=== PATIENT | female | born 1955 | race Caucasian/White ===

== ENCOUNTER 2018-12-06 18:40 | Inpatient (IN) | payer MEDICAID ==
[~2018-12-06] VITALS: Ht 152.4 cm; Wt 69.6 kg
[2018-12-06] MEDS ORDERED: SOD CHLORIDE 0.9% 500 ML IV STA (20:47)
[2018-12-06] MEDS ORDERED: PIPER-TAZO 3.375 GM IV (PMX) 100 ML IVPB ONE (21:00)
--- NOTE | 2018-12-06 22:26 | HP ---
Date/Time of Note Date/Time of Note DATE: 12/06/18 TIME: 22:26 Assessment/Plan VTE Prophylaxis SCD applied (from Nsg): Yes (left lower extremity) Pharmacological prophylaxis: NA/contraindicated Pharm contraindication: low risk/ambulating Lines/Catheters IV Catheter Type (from Nrsg): Peripheral IV Assessment/Plan Hospital Course This is a 63-year-old female being admitted to the [facility] floor for: #1 nonhealing right ankle chronic wound: Healing likely affected secondary to right lower extremity stenosis seen on arterial ultrasound. Start Vanco and Zosyn. Wound culture. Wound care consult. Ultrasound Doppler does not show any signs of DVT. Order X-rays of the ankle 3 view.Will consult podiatry for further evaluation as well as treatment strategy and need for further imaging studies such as CT or MRI. Will check ESR and CRP #2 hyperlipidemia: We will check lipid panel, will need to confirm dosing of patient's home simvastatin and then resume #3 newly diagnosed peripheral artery disease: Arterial ultrasound Doppler showed right lower extremity stenosis at the level of the dorsalis pedis. Will hold off on any initiation of aspirin at the current time given patient's wound and possible need for surgical intervention. Statin once patient's home doses confirmed though may need higher intensity statin. Consult vascular surgery Dr. Carroll #4 obesity: We will check hemoglobin A1c, lipid panel, TSH #5 DVT GI prophylaxis: SCDs to the left lower extremity, no GI prophylaxis indicated Further treatment strategy will be implemented as per the clinical course Result Diagram: 12/06/18205712/06/182057 Results 24hrs Laboratory Tests Test 12/06/18 20:58 White Blood Count 8.4 Red Blood Count 4.33 Hemoglobin 12.5 Hematocrit 38.4 Mean Corpuscular Volume 88.7 Mean Corpuscular Hemoglobin 28.9 L Mean Corpuscular Hemoglobin Concent 32.6 Red Cell Distribution Width 13.4 Platelet Count 230 Mean Platelet Volume 10.9 H Immature Granulocytes % 0.400 Neutrophils % 48.4 Lymphocytes % 31.8 Monocytes % 6.8 Eosinophils % 11.8 H Basophils % 0.8 Nucleated Red Blood Cells % 0.0 Immature Granulocytes # 0.030 Neutrophils # 4.1 Lymphocytes # 2.7 Monocytes # 0.6 Eosinophils # 1.0 H Basophils # 0.1 Nucleated Red Blood Cells # 0.0 Prothrombin Time 11.6 L Prothrombin Time Ratio 0.9 INR International Normalized Ratio 0.84 Activated Partial Thromboplast Time 33.2 Sodium Level 143 Potassium Level 4.4 Chloride Level 103 Carbon Dioxide Level 29 Anion Gap 11 Blood Urea Nitrogen 21 H Creatinine 0.75 Est Glomerular Filtrat Rate mL/min > 60 Glucose Level 106 Calcium Level 10.0 HPI/ROS Admit Date/Time Admit Date/Time Dec 06, 2018 at 21:33 Hx of Present Illness cc: right ankle wound x 2 months, worse since wednesday This is a 63-year-old woman complaining of worsening ulcer to the right medial ankle, she states the skin started breaking down about 2 months ago and has been getting worse. She was seen and evaluated at 2 separate emergency departments over the last 2 days and discharged but she has had no recent imaging studies and no antibiotic use. She states on wednesday she had some bleeding from a blister that formed there but has since popped. She has pain with ambulation. She denies fevers or chills, no chest pain or shortness of breath, no paresis or paresthesias. 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 allergies: nkda meds: see nov Const: As per HPI Eyes : No pain discharge or redness or change in visual acuity ENT: No pain, sore throat, congestion, congestion, dysphagia or discharge Respiratory: No shortness of breath, cough, sputum, wheezing, or pleuritic pain Cardiovascular: No chest pain, palpitation, PND, or edema GI : no change in appetite, abdominal pain, nausea, vomiting, diarrhea, constipation, or change in the color his stool Genitourinary: No dysuria, hematuria, flank pain , discharge or CVA tenderness Musculoskeletal: As per HPI Skin: As per HPI Neuro: No headache, dizziness, syncope, seizure, focal weakness Endocrine: No polyuria, polydipsia, temperature intolerance Psych: No hallucination, depression, anxiety or suicidal ideation PMH/Family/Social Past Medical History HLD Medications Current Medications IV Flush (NS 3 ml) 3 ml PER PROTOCOL IV ; Start 12/06/18 at 22:30; Status UNV Ondansetron HCl (Zofran Inj) 4 mg Q6H PRN IV NAUSEA/VOMITING; Start 12/06/18 at 22:30; Status UNV Acetaminophen (Tylenol Tab) 650 mg Q6H PRN PO .PAIN 1-3 OR TEMP; Start 12/06/18 at 22:30; Status UNV Acetaminophen/ Hydrocodone Bitart ([place] (5/325)) 1 tab Q6H PRN PO .MOD PAIN 4- 6; Start 12/06/18 at 22:30; Status UNV Morphine Sulfate (morphine) 2 mg Q4H PRN IV .SEVERE PAIN 7-10; Start 12/06/18 at 22:30; Status UNV Docusate Sodium (Colace) 100 mg Q12H PRN PO .CONSTIPATION; Start 12/06/18 at 22:30; Status UNV Bisacodyl (Dulcolax) 5 mg DAILY PRN PO .CONSTIPATION; Start 12/06/18 at 22:30; Status UNV Coded Allergies: No Known Allergy (Unverified , 12/06/18) Past Surgical History x 1, varicose vein surgery Family History Significant Family History: no pertinent family hx Social History Alcohol Use: none Smoking Status: Never smoker Drug Use: none Exam/Review of Systems Vital Signs Vitals Vital Signs Date Temp Pulse Resp B/P (MAP) Pulse Ox O2 O2 Flow FiO2 Time Delivery Rate 12/06/18 98.3 99 19 154/79 98 Room Air 22:01 (104) Exam Exam General: Patient is currently lying in bed in no acute distress HEENT: Atraumatic, normocephalic. The pupils are equal, round and reactive. Extraocular motor are intact Neck: Supple with full range of motion. No rigidity or meningismus Chest: Nontender Lungs: Clear to auscultation bilaterally no crackles rales or wheezing Heart: Normal S1-S2, Regular rhythm and rate. No murmur, S3, or S4 Abdomen: Soft , nontender, nondistended , bowel sounds are present. No guarding no rebound tenderness , No masses or organomegaly. No costovertebral temporal angle mass Extremities: Right lower extremity varicose veins, right medial ankle wound please see skin, Skin: Right medial ankle skin wound approximately 3 x 3 cm, discoloration with scant dried discharge Neurologic: Normal mental status, speech normal, cranial nerves II through XII are intact, motor and sensory are intact, Additional Comments PROCEDURE: US Lower extremity arterial bilateral. CLINICAL INDICATION: Pain TECHNIQUE: Multiple sonographic images of the bilateral lower extremity arteries were obtained utilizing grayscale, color-flow and doppler imaging. The images were reviewed on a PACS workstation. COMPARISON: None. FINDINGS: Scattered calcified atherosclerotic plaque is seen. Velocities and waveforms were obtained as described below. RIGHT LEG: Right common femoral artery: 122.1 cm/s; triphasic waveforms Right proximal superficial femoral artery: 93.3 cm/s; triphasic waveforms Right mid superficial femoral artery: 77.8 cm/s; triphasic waveforms Right distal superficial femoral artery: 53.5 cm/s; triphasic waveforms Right popliteal artery: 57.9 cm/s; triphasic waveforms Right posterior tibial artery: 64.6 cm/s; biphasic waveforms Right dorsalis pedis artery: 172.5 cm/s; biphasic waveforms Right CRISTIAN: Could not be calculi due to calcified posterior tibial and dorsalis pedis arteries. LEFT LEG: Left common femoral artery: 97.1 cm/s; triphasic waveforms Left proximal superficial femoral artery: 95.2 cm/s; triphasic waveforms Left mid superficial femoral artery: 91.2 cm/s; triphasic waveforms Left distal superficial femoral artery: 51.7 cm/s; triphasic waveforms Left popliteal artery: 39.5 cm/s; triphasic waveforms Left posterior tibial artery: 61.6 cm/s; triphasic waveforms Left dorsalis pedis artery: 15 cm/s; biphasic waveforms Left CRISTIAN: 1, 0.84 IMPRESSION: Elevation of peak systolic velocity in the right dorsalis pedis artery suggestive of hemodynamically significant stenosis. Please see above. RPTAT: HJES .Damien Laughlin MD, MD Date Time Electronically viewed and signed by .Damien Laughlin MD, MD on 12/06/2018 22:11 .S/ CC: JEAN CARLOS LAURENT MD [id number] PROCEDURE: US Lower extremity Venous bilateral. CLINICAL INDICATION: Pain TECHNIQUE: Multiple sonographic images of the bilateral lower extremity deep venous system was obtained utilizing grayscale, color-flow, compressive sonography and doppler imaging with augmentation. The images were reviewed on a PACS workstation. COMPARISON: None. FINDINGS: There is normal compressibility and flow within bilateral common femoral, femoral, popliteal, posterior tibial and peroneal veins. IMPRESSION: No sonographic evidence for bilateral lower extremity deep venous thrombosis. RPTAT: HJES .Damien Laughlin MD, MD Date Time Electronically viewed and signed by .Damien Laughlin MD, MD on 12/06/2018 22:12 .S/ CC: JEAN CARLOS LAURENT MD [id number] MISAEL MOTA Dec 06, 2018 22:26
[2018-12-06] MEDS ORDERED: morphine 2 MG INJ IV PRN (22:30)
[2018-12-06] MEDS ORDERED: NACL 0.9% 3 ML SYG IV SCH (22:30)
[2018-12-06] MEDS ORDERED: BISACODYL (EC) 5 MG TAB PO PRN (22:30)
[2018-12-06] MEDS ORDERED: ONDANSETRON 4 MG INJ IV PRN (22:30)
[2018-12-06] MEDS ORDERED: DOCUSATE SODIUM 100 MG CAP PO PRN (22:30)
[2018-12-06] MEDS ORDERED: HYDROCODONE/APAP (5/325) TAB PO PRN (22:30)
--- NOTE | 2018-12-06 22:36 | ERD ---
ER Documentation Chief Complaint Chief Complaint BLEEDING ULCER IN RIGHT ANKLE X'S 3 DAYS HPI This is a 63-year-old woman complaining of worsening ulcer to the right medial ankle, she states the skin started breaking down about 2 months ago and has been getting worse. She was seen and evaluated at 2 separate emergency departments over the last 2 days and discharged but she has had no recent imaging studies and no antibiotic use. She has pain with ambulation. She denies fevers or chills, no chest pain or shortness of breath, no paresis or paresthesias ROS All systems reviewed and are negative except as per history of present illness. Allergies Allergies: Coded Allergies: No Known Allergy (Unverified , 12/06/18) PMhx/Soc None Medical and Surgical Hx: pt denies Medical Hx History of Surgery: Yes () Hx Cardiac Disorders: No Hx Miscellaneous Medical Probl: No Hx Alcohol Use: No Hx Substance Use: No Hx Tobacco Use: No Smoking Status: Unknown if ever smoked FmHx Family History: No diabetes Physical Exam Vitals Vital Signs Date Temp Pulse Resp B/P (MAP) Pulse Ox O2 O2 Flow FiO2 Time Delivery Rate 12/06/18 98.3 65 18 146/75 98 19:04 (98) Physical Exam Const: No acute distress, afebrile Resp: Clear to auscultation bilaterally Cardio: Regular rate and rhythm, no murmurs Abd: Soft, non tender, non distended. Skin: Large irregular bordered deep skin ulceration to the right medial ankle with purulent discharge and mild tenderness to touch Back: No midline or flank tenderness Ext: No cyanosis, or edema. Calves bilaterally symmetrical Neur: Awake and alert x3, no focal deficits or facial asymmetry, pupils equal round reactive to light Psych: Normal Mood and Affect Result Diagram: 12/06/18205712/06/182057 Results 24 hrs Laboratory Tests Test 12/06/18 20:58 White Blood Count 8.4 10^3/ul Red Blood Count 4.33 10^6/ul Hemoglobin 12.5 g/dl Hematocrit 38.4 % Mean Corpuscular Volume 88.7 fl Mean Corpuscular Hemoglobin 28.9 pg Mean Corpuscular Hemoglobin Concent 32.6 g/dl Red Cell Distribution Width 13.4 % Platelet Count 230 10^3/UL Mean Platelet Volume 10.9 fl Immature Granulocytes % 0.400 % Neutrophils % 48.4 % Lymphocytes % 31.8 % Monocytes % 6.8 % Eosinophils % 11.8 % Basophils % 0.8 % Nucleated Red Blood Cells % 0.0 /100WBC Immature Granulocytes # 0.030 10^3/ul Neutrophils # 4.1 10^3/ul Lymphocytes # 2.7 10^3/ul Monocytes # 0.6 10^3/ul Eosinophils # 1.0 10^3/ul Basophils # 0.1 10^3/ul Nucleated Red Blood Cells # 0.0 10^3/ul Prothrombin Time 11.6 Sec Prothrombin Time Ratio 0.9 INR International Normalized Ratio 0.84 Activated Partial Thromboplast Time 33.2 Sec Sodium Level 143 mmol/L Potassium Level 4.4 mmol/L Chloride Level 103 mmol/L Carbon Dioxide Level 29 mmol/L Anion Gap 11 Blood Urea Nitrogen 21 mg/dl Creatinine 0.75 mg/dl Est Glomerular Filtrat Rate mL/min > 60 mL/min Glucose Level 106 mg/dl Calcium Level 10.0 mg/dl Current Medications Medications Dose Sig/Nader Start Time Status Last (Trade) Ordered Route PRN Stop Time Admin Dose Reason Admin Sodium 500 ml @ Q1H STAT 12/06/18 DC 12/06/18 Chloride 500 mls/hr IV 20:47 12/06/18 21:15 21:46 Piperacillin 100 ml @ ONCE ONCE 12/06/18 DC 12/06/18 Sod/ 200 mls/hr IVPB 21:00 12/06/18 21:14 Tazobactam 21:29 Sod Procedures/MDM IV line was established patient was placed on hospital monitor rhythm strip revealed a sinus rhythm at about 80 bpm with upright P and T waves. Patient was afebrile I administered 500 cc normal saline IV and Zosyn 3.375 g IV Doppler ultrasound of the bilateral lower extremity veins was performed, no deep vein thrombosis noted. Arterial Doppler ultrasound of the bilateral lower extremities was performed, and there is significant stenosis of the right dorsalis pedis artery. CBC was normal, electrolytes revealed dehydration with a BUN/creatinine of 21/0.8, coagulation profile was normal. Patient will be admitted to [facility] for continued antibiotic therapy and possible vascular surgery consultation Departure Diagnosis: Primary Impression: Peripheral arterial occlusive disease Additional Impression: Infected ulcer of skin Non-pressure ulcer stage: unspecified non-pressure ulcer stage Qualified Codes: L98.499 - Non-pressure chronic ulcer of skin of other sites with unspecified severity; L08.9 - Local infection of the skin and subcutaneous tissue, unspecified Condition: JEAN CARLOS Purvis MD Dec 06, 2018 22:29
[2018-12-06] MEDS ORDERED: SIMV40TA2 PO (22:52)
[2018-12-06] MEDS ORDERED: IBUP-1542 PO (22:52)
[2018-12-06] MEDS ORDERED: OMEG-135 PO (22:52)
[2018-12-07 02:00] VITALS: BP 114/61; PULSE 71; RESP 19
[2018-12-07] MEDS ORDERED: VANCOMYCIN IV PER PHARMACY XX SCH ×2 (02:00)
[2018-12-07] MEDS ORDERED: VANCOMYCIN HCL 1.5 GM in SOD CHLORIDE 0.9% 250 ML IVPB SCH (04:00)
[2018-12-07 07:36] VITALS: BP 123/66; PULSE 74; RESP 18
--- NOTE | 2018-12-07 12:50 | PN ---
Date/Time of Note Date/Time of Note DATE: 12/07/18 TIME: 12:50 Assessment/Plan VTE Prophylaxis Risk score (from Ns)>0 risk: 3 SCD applied (from Nsg): Yes Pharmacological prophylaxis: LMWH Lines/Catheters IV Catheter Type (from Nrs): Saline Lock Assessment/Plan Hospital Course SUBJECTIVE: Lying in bed, no acute distress. OBJECTIVE: Vital signs-see below PHYSICAL EXAM: Constitutional: Well-developed, adequately built, lying in bed comfortably. Psych: nl mood/affect, no complaints Head: atraumatic, normocephalic Eyes: nl conjunctiva, nl sclera ENMT: mucosa pink and moist, nl external ears & nose Neck: non-tender, supple Respiratory: clear to auscultation, normal air movement Cardiovascular: nl pulses, regular rate and rhythm Gastrointestinal: non-tender, soft, bowel sounds active in all 4 quadrants. Musculoskeletal/extremities: Right ankle wound. Dressing intact. nl extremities to inspection, motor strength equal bilaterally, no focal deficit. Normal pulses,no cyanosis, no edema. Neurological: Alert oriented 3,nl speech, nl strength Skin: nl turgor ASSESSMENT/PLAN:63-year-old female with hyperlipidemia, peripheral artery disease, admitted with nonhealing right ankle chronic wound. 1.Non healing right ankle arterial wound -Arterial studies positive for Significant stenosis on right DP artery. -Continue empiric antibiotics -wound care. -Podiatry and vascular consultation has been called. 2. Peripheral arterial disease. -Arterial study noted, positive for significant stenosis of right DP artery. --Continue to optimize neurovascular status with antihypertensives to keep blood pressure ~140/90, diet, nutrition, exercise, blood glucose control, and antiplatelets/anticoagulation. -Follow-up vascular recommendations. 3. Hyperlipidemia -Resume statin and fish oil supplementation. 4. Obesity with BMI 30.0. -Weight reduction advised. 5. Prediabetes with A1c 6.1. -Diet changes and exercise advised. 6. Anemia, likely chronic. -Stable H&H. Continue to monitor. 7. Elevated TSH, rule out hypothyroidism. -Obtain free T4 level and treat accordingly. DVT GI prophylaxis: Lovenox. PUD prophylaxis: Not indicated CODE STATUS: Full code Diet: LOW CHOL/Carbohydrate controlled. Disposition: Continue current management. Follow-up podiatry and vascular recommendations. Result Diagram: 12/07/18 0426 12/07/18 0426 Results 24hrs Laboratory Tests Test 12/06/18 20:58 12/07/18 04:25 12/07/18 04:26 White Blood Count 8.4 7.7 Red Blood Count 4.33 3.84 L Hemoglobin 12.5 11.1 L Hematocrit 38.4 33.9 L Mean Corpuscular Volume 88.7 88.3 Mean Corpuscular Hemoglobin 28.9 L 28.9 L Mean Corpuscular Hemoglobin Concent 32.6 32.7 Red Cell Distribution Width 13.4 13.2 Platelet Count 230 207 Mean Platelet Volume 10.9 H 11.1 H Immature Granulocytes % 0.400 0.300 Neutrophils % 48.4 50.9 Lymphocytes % 31.8 27.7 Monocytes % 6.8 7.4 Eosinophils % 11.8 H 13.0 H Basophils % 0.8 0.7 Nucleated Red Blood Cells % 0.0 0.0 Immature Granulocytes # 0.030 0.020 Neutrophils # 4.1 3.9 Lymphocytes # 2.7 2.1 Monocytes # 0.6 0.6 Eosinophils # 1.0 H 1.0 H Basophils # 0.1 0.1 Nucleated Red Blood Cells # 0.0 0.0 Prothrombin Time 11.6 L Prothrombin Time Ratio 0.9 INR International Normalized Ratio 0.84 Activated Partial Thromboplast Time 33.2 Sodium Level 143 143 Potassium Level 4.4 3.7 Chloride Level 103 105 Carbon Dioxide Level 29 28 Anion Gap 11 10 Blood Urea Nitrogen 21 H 18 Creatinine 0.75 0.76 Est Glomerular Filtrat Rate mL/min > 60 > 60 Glucose Level 106 110 Calcium Level 10.0 9.4 Erythrocyte Sedimentation Rate 23 Hemoglobin A1c 6.1 H C-Reactive Protein < 0.5 Magnesium Level 1.9 Total Bilirubin 0.4 Direct Bilirubin 0.00 Indirect Bilirubin 0.4 Aspartate Amino Transf (AST/SGOT) 28 Alanine Aminotransferase (ALT/SGPT) 27 Alkaline Phosphatase 85 Total Protein 7.0 Albumin 3.9 Globulin 3.10 Albumin/Globulin Ratio 1.25 Triglycerides Level 267 H Cholesterol Level 146 LDL Cholesterol, Calculated 56 HDL Cholesterol 37 Cholesterol/HDL Ratio 3.9 Thyroid Stimulating Hormone (TSH) 8.110 H Exam/Review of Systems Exam Vitals Vital Signs Date Temp Pulse Resp B/P (MAP) Pulse Ox O2 O2 Flow FiO2 Time Delivery Rate 12/07/18 99.1 74 18 123/66 98 07:36 (85) 12/07/18 Room Air 02:00 Intake and Output 12/06/18 12/06/18 12/07/18 1515:00 23:00 07:00 IntakeIntake Total 150 ml BalanceBalance 150 ml Results Results 24hrs Laboratory Tests Test 12/06/18 20:58 12/07/18 04:25 12/07/18 04:26 White Blood Count 8.4 7.7 Red Blood Count 4.33 3.84 L Hemoglobin 12.5 11.1 L Hematocrit 38.4 33.9 L Mean Corpuscular Volume 88.7 88.3 Mean Corpuscular Hemoglobin 28.9 L 28.9 L Mean Corpuscular Hemoglobin Concent 32.6 32.7 Red Cell Distribution Width 13.4 13.2 Platelet Count 230 207 Mean Platelet Volume 10.9 H 11.1 H Immature Granulocytes % 0.400 0.300 Neutrophils % 48.4 50.9 Lymphocytes % 31.8 27.7 Monocytes % 6.8 7.4 Eosinophils % 11.8 H 13.0 H Basophils % 0.8 0.7 Nucleated Red Blood Cells % 0.0 0.0 Immature Granulocytes # 0.030 0.020 Neutrophils # 4.1 3.9 Lymphocytes # 2.7 2.1 Monocytes # 0.6 0.6 Eosinophils # 1.0 H 1.0 H Basophils # 0.1 0.1 Nucleated Red Blood Cells # 0.0 0.0 Prothrombin Time 11.6 L Prothrombin Time Ratio 0.9 INR International Normalized Ratio 0.84 Activated Partial Thromboplast Time 33.2 Sodium Level 143 143 Potassium Level 4.4 3.7 Chloride Level 103 105 Carbon Dioxide Level 29 28 Anion Gap 11 10 Blood Urea Nitrogen 21 H 18 Creatinine 0.75 0.76 Est Glomerular Filtrat Rate mL/min > 60 > 60 Glucose Level 106 110 Calcium Level 10.0 9.4 Erythrocyte Sedimentation Rate 23 Hemoglobin A1c 6.1 H C-Reactive Protein < 0.5 Magnesium Level 1.9 Total Bilirubin 0.4 Direct Bilirubin 0.00 Indirect Bilirubin 0.4 Aspartate Amino Transf (AST/SGOT) 28 Alanine Aminotransferase (ALT/SGPT) 27 Alkaline Phosphatase 85 Total Protein 7.0 Albumin 3.9 Globulin 3.10 Albumin/Globulin Ratio 1.25 Triglycerides Level 267 H Cholesterol Level 146 LDL Cholesterol, Calculated 56 HDL Cholesterol 37 Cholesterol/HDL Ratio 3.9 Thyroid Stimulating Hormone (TSH) 8.110 H Medications Medication Current Medications IV Flush (NS 3 ml) 3 ml PER PROTOCOL IV ; Start 12/06/18 at 22:30 Ondansetron HCl (Zofran Inj) 4 mg Q6H PRN IV NAUSEA/VOMITING; Start 12/06/18 at 22:30 Acetaminophen (Tylenol Tab) 650 mg Q6H PRN PO .PAIN 1-3 OR TEMP; Start 12/06/18 at 22:30 Acetaminophen/ Hydrocodone Bitart ([place] (5/325)) 1 tab Q6H PRN PO .MOD PAIN 4- 6; Start 12/06/18 at 22:30 Morphine Sulfate (morphine) 2 mg Q4H PRN IV .SEVERE PAIN 7-10; Start 12/06/18 at 22:30 Docusate Sodium (Colace) 100 mg Q12H PRN PO .CONSTIPATION; Start 12/06/18 at 22:30 Bisacodyl (Dulcolax) 5 mg DAILY PRN PO .CONSTIPATION; Start 12/06/18 at 22:30 Vancomycin HCl (Vanco Iv Per Pharmacy) VANCOMYCIN PER PHARMACY PER PROTOCOL XX ; Start 12/07/18 at 02:00 Vancomycin HCl 1.25 gm/Sodium Chloride 250 ml @ 83.333 mls/ hr Q24H IVPB ; Start 12/08/18 at 04:00 CARLITO JOHNSON NP Dec 07, 2018 12:50
[2018-12-07 13:48] VITALS: BP 133/68; PULSE 80; RESP 18
[2018-12-07] MEDS: ENOXAPARIN 40 MG/0.4 ML SYG SC SCH (14:24)
[2018-12-07] MEDS: ACETAMINOPHEN 325 MG TAB PO PRN (17:57)
--- NOTE | 2018-12-07 19:10 | CONS ---
DATE OF ADMISSION: 12/06/2018 DATE OF CONSULTATION: 12/07/2018 REFERRING PHYSICIAN: Dr. Adrián Mota. REASON FOR CONSULTATION: Venous stasis ulcer, right medial ankle with bleeding. HISTORY OF PRESENT ILLNESS: This is a 63-year-old woman who was admitted with right medial ankle chr onic venous stasis ulcer. It has been there for at least several months. She has severe chronic cristina ous stasis skin changes. She has had the previous some type of vein ablation procedure and had some bleeding from the wound so brought her into the hospital. She thinks it started several months ago w hen she bumped it on a vacuum drain cleaner or something while she was working. PAST MEDICAL HISTORY: Significant for not being diabetic. She is moderately obese. She has hyperli pidemia. She has had an arterial study that shows basically normal bilateral lower extremity arteria l duplex and venous scan shows no DVT. MEDICATIONS: Currently consist of: 1. Vancomycin. 2. Fish oil. 3. Lipitor. 4. Subcutaneous Lovenox. 5. Zofran. 6. Pain medications. ALLERGIES: SHE HAS NO KNOWN DRUG ALLERGIES. SOCIAL HISTORY: She is a nonsmoker. She does not drink or use any illicit drugs. She works as a [employer] Technologies[employer], so she is on her feet all the time. FAMILY HISTORY: Noncontributory. PAST SURGICAL HISTORY: Significant for and varicose vein surgery on the right leg. It esther nds like a vein stripping was done years ago. PHYSICAL EXAMINATION: GENERAL: She is an elderly woman. She is in no acute distress. VITAL SIGNS: She has been afebrile. Her blood pressure is 133/68, heart rate is 80, respiratory rat e 18. She is 95% sat on room air. NECK: She has 2+ carotid, radial and brachial pulses bilaterally. LUNGS: Clear. HEART: Regular rate and rhythm. ABDOMEN: Soft, nontender, nondistended. EXTREMITIES: She has 2+ femoral, popliteal, DP and PT pulses bilaterally. She has advanced chronic venous stasis changes in the right medial ankle and calf region with open venous stasis ulcer. It kidd d some recent bleeding. It is like a varicosity probably bled, although now it is not bleeding curre ntly. There is some sort of fibrinous exudate over the wound. It does not look infected. LABORATORY DATA: Her white count is normal. Her platelet count is normal. Her creatinine is normal . All of her other labs were essentially normal, except for triglycerides, which are elevated. IMPRESSION: Right medial ankle chronic venous stasis ulcer. She needs multilayer compression. So I am going to have the wound center nurse place a Profore 4-layer compression wrap and I could see her back and follow her [facility] on a weekly basis. She will need this compr ession for at least several weeks until the wounds healed and that she will need some compression sto ckings to use in the senior care. Dictated By: TAVIA FOWLER/RIGO Conf#: [id number] DID#: [id number] CC: ADRIÁN MOTA MD;*End*
--- NOTE | 2018-12-07 19:19 | CONS ---
DATE OF ADMISSION: 12/06/2018 DATE OF CONSULTATION: 12/07/2018 INFECTIOUS DISEASE CONSULT REASON FOR CONSULTATION: Antibiotic management. HISTORY OF PRESENT ILLNESS: Karla Rdz is a 63-year-old, female who has a bleedin g ulcer in the right ankle for 3 days' duration. She notes that the skin started breaking down about 2 months ago and she has been having problems with it, but it is getting worse. [facility] over the last few days. She has pain with ambulation. PAST PROBLEMS: Include history of in the past. FAMILY HISTORY: Noncontributory. SOCIAL HISTORY: She does not smoke, drink or abuse drugs. ALLERGIES: NONE TO PENICILLIN, SULFA OR FOODS. MEDICATIONS: Per chart. REVIEW OF SYSTEMS: As per HPI. PHYSICAL EXAMINATION: GENERAL: The patient is in no acute distress. VITAL SIGNS: Stable. She is afebrile. SKIN: Without generalized rash. HEENT: Within normal limits. NECK: Supple. LYMPH NODES: None palpable. CHEST: Decreased breath sounds at the bases. HEART: Without murmur or gallop. ABDOMEN: Soft, nontender, without organosplenomegaly or masses. EXTREMITIES: She has large irregular deep skin ulcerations to the right medial ankle with purulent d ischarge and mild tenderness to the touch. Otherwise without cyanosis, clubbing, or edema. RECTAL AND GENITAL: Exam was deferred. NEUROLOGIC: No focal neurological abnormality. LABORATORY DATA: Her white count on the 2nd was 8.4, H and H 12.5 and 38.4, platelet count 230,000. BUN and creatinine 21/0.75. Random glucose 106. IMPRESSION AND PLAN: Patient was started on Zosyn. She was seen by Renea Mendez today. A 63-year-old female with hyperlipidemia, peripheral artery disease, nonhealing right ankle chronic wound. The po diatry and vascular consults have been called. White count today is 7.7 and she is currently on vanc omycin and was on Zosyn. We will continue the vancomycin and observe her workup with regards to podi atry and vascular surgery. I will dictate my findings to the hospitalist. Dictated By: NANI WILLETT MD, JD/RIGO Conf#: [id number] DID#: [id number]
[2018-12-07 20:00] VITALS: BP_SYST 134; BP_SYST 151; BP_DIAS 66; BP_DIAS 86; PULSE 66; PULSE 78; RESP 19
[2018-12-07] MEDS: ATORVASTATIN 10 MG TAB PO SCH (20:53)
[2018-12-07] MEDS: FISH OIL 1,000 MG CAP PO SCH (20:53)
[2018-12-08 02:00] VITALS: BP 136/60; PULSE 64; RESP 18
[2018-12-08] MEDS: VANCOMYCIN HCL 1.25 GM in SOD CHLORIDE 0.9% 250 ML IVPB SCH (04:13)
[2018-12-08 07:38] VITALS: BP 136/72; PULSE 69; RESP 18
[2018-12-08] MEDS: FISH OIL 1,000 MG CAP PO SCH ×2 (10:15→20:46)
[2018-12-08] MEDS: ENOXAPARIN 40 MG/0.4 ML SYG SC SCH (10:16)
--- NOTE | 2018-12-08 11:24 | PN ---
Date/Time of Note Date/Time of Note DATE: 12/08/18 TIME: 11:17 Assessment/Plan VTE Prophylaxis Risk score (from Nsg)>0 risk: 3 SCD applied (from Nsg): Yes Pharmacological prophylaxis: LMWH Lines/Catheters IV Catheter Type (from Nrs): Saline Lock Assessment/Plan Hospital Course SUBJECTIVE: sitting up in chair.no acute distress. OBJECTIVE: Vital signs-see below PHYSICAL EXAM: Constitutional: Well-developed, adequately built, lying in bed comfortably. Psych: nl mood/affect, no complaints Head: atraumatic, normocephalic Eyes: nl conjunctiva, nl sclera ENMT: mucosa pink and moist, nl external ears & nose Neck: non-tender, supple Respiratory: clear to auscultation, normal air movement Cardiovascular: nl pulses, regular rate and rhythm Gastrointestinal: non-tender, soft, bowel sounds active in all 4 quadrants. Musculoskeletal/extremities: Right ankle w/compression bandage-c/d/i. nl extremities to inspection, motor strength equal bilaterally, no focal deficit. Normal pulses,no cyanosis, no edema. Neurological: Alert oriented 3,nl speech, nl strength Skin: nl turgor ASSESSMENT/PLAN:63-year-old female with hyperlipidemia, peripheral artery disease, admitted with nonhealing right ankle chronic wound. 1.Non healing right ankle venous stasis ulcer -WC growing staph+diphtheroids -Arterial studies positive for Significant stenosis on right DP artery. -vascular following and on multilayer compression bandage -Continue empiric antibiotics-Anticipate ID team to deescalate in 24hrs for dc planning w/oupt vascular,podiatry f/u at [facility] weekly -wound care. 2. Peripheral arterial disease. -Arterial study noted, positive for significant stenosis of right DP artery. -Continue to optimize neurovascular status with antihypertensives to keep blood pressure ~140/90, diet, nutrition, exercise, blood glucose control, and antiplatelets/anticoagulation. -Follow-up vascular recommendations. 3. Hyperlipidemia -on statin and fish oil supplementation. 4. Obesity with BMI 30.0. -Weight reduction advised. 5. Prediabetes with A1c 6.1. -Diet changes and exercise advised. 6. Anemia, likely chronic. -Stable H&H. Continue to monitor. 7. Subclinical hypothyroidism. -recommend oupt repeat labs in 4weeks DVT GI prophylaxis: Lovenox. PUD prophylaxis: Not indicated CODE STATUS: Full code Diet: LOW CHOL/Carbohydrate controlled. Disposition: Continue current management. 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 She needs to see and [facility] on a [facility] basis. CM to fax information and confirm APC f/u. F/u ID team regarding abx deescalation pending final sensitivity for DC planning ... Patient was seen in collaboration with Result Diagram: 12/08/1845612/[id number] Results 24hrs Laboratory Tests Test 12/08/18 04:57 White Blood Count 8.7 Red Blood Count 4.17 L Hemoglobin 12.1 Hematocrit 36.3 L Mean Corpuscular Volume 87.1 Mean Corpuscular Hemoglobin 29.0 Mean Corpuscular Hemoglobin Concent 33.3 Red Cell Distribution Width 13.2 Platelet Count 208 Mean Platelet Volume 10.9 H Immature Granulocytes % 0.200 Neutrophils % 55.1 Lymphocytes % 27.5 Monocytes % 7.4 Eosinophils % 9.2 H Basophils % 0.6 Nucleated Red Blood Cells % 0.0 Immature Granulocytes # 0.020 Neutrophils # 4.8 Lymphocytes # 2.4 Monocytes # 0.6 Eosinophils # 0.8 H Basophils # 0.1 Nucleated Red Blood Cells # 0.0 Erythrocyte Sedimentation Rate 36 H Sodium Level 140 Potassium Level 3.9 Chloride Level 102 Carbon Dioxide Level 27 Anion Gap 11 Blood Urea Nitrogen 19 Creatinine 0.68 Est Glomerular Filtrat Rate mL/min > 60 Glucose Level 104 Calcium Level 9.7 C-Reactive Protein < 0.5 Exam/Review of Systems Exam Vitals Vital Signs Date Temp Pulse Resp B/P (MAP) Pulse Ox O2 O2 Flow FiO2 Time Delivery Rate 12/08/18 98.1 69 18 136/72 96 07:38 (93) 12/08/18 Room Air 02:00 Intake and Output 12/07/18 12/07/18 12/08/18 1414:59 22:59 06:59 IntakeIntake Total 1780 ml 100 ml BalanceBalance 1780 ml 100 ml Results Results 24hrs Laboratory Tests Test 12/08/18 04:57 White Blood Count 8.7 Red Blood Count 4.17 L Hemoglobin 12.1 Hematocrit 36.3 L Mean Corpuscular Volume 87.1 Mean Corpuscular Hemoglobin 29.0 Mean Corpuscular Hemoglobin Concent 33.3 Red Cell Distribution Width 13.2 Platelet Count 208 Mean Platelet Volume 10.9 H Immature Granulocytes % 0.200 Neutrophils % 55.1 Lymphocytes % 27.5 Monocytes % 7.4 Eosinophils % 9.2 H Basophils % 0.6 Nucleated Red Blood Cells % 0.0 Immature Granulocytes # 0.020 Neutrophils # 4.8 Lymphocytes # 2.4 Monocytes # 0.6 Eosinophils # 0.8 H Basophils # 0.1 Nucleated Red Blood Cells # 0.0 Erythrocyte Sedimentation Rate 36 H Sodium Level 140 Potassium Level 3.9 Chloride Level 102 Carbon Dioxide Level 27 Anion Gap 11 Blood Urea Nitrogen 19 Creatinine 0.68 Est Glomerular Filtrat Rate mL/min > 60 Glucose Level 104 Calcium Level 9.7 C-Reactive Protein < 0.5 Medications Medication Current Medications IV Flush (NS 3 ml) 3 ml PER PROTOCOL IV ; Start 12/06/18 at 22:30 Ondansetron HCl (Zofran Inj) 4 mg Q6H PRN IV NAUSEA/VOMITING; Start 12/06/18 at 22:30 Acetaminophen (Tylenol Tab) 650 mg Q6H PRN PO .PAIN 1-3 OR TEMP Last administered on 12/07/18at 17:57; Admin Dose 650 MG; Start 12/06/18 at 22:30 Acetaminophen/ Hydrocodone Bitart ([place] (5/325)) 1 tab Q6H PRN PO .MOD PAIN 4- 6 Last administered on 12/07/18at 13:05; Admin Dose 1 TAB; Start 12/06/18 at 22:30 Morphine Sulfate (morphine) 2 mg Q4H PRN IV .SEVERE PAIN 7-10; Start 12/06/18 at 22:30 Docusate Sodium (Colace) 100 mg Q12H PRN PO .CONSTIPATION; Start 12/06/18 at 22:30 Bisacodyl (Dulcolax) 5 mg DAILY PRN PO .CONSTIPATION; Start 12/06/18 at 22:30 Vancomycin HCl (Vanco Iv Per Pharmacy) VANCOMYCIN PER PHARMACY PER PROTOCOL XX ; Start 12/07/18 at 02:00 Vancomycin HCl 1.25 gm/Sodium Chloride 250 ml @ 83.333 mls/ hr Q24H IVPB Last administered on 4/4/19at 04:13; Admin Dose 83.333 MLS/HR; Start 12/08/18 at 04:00 Fish Oil (Fish Oil) 2,000 mg BID PO Last administered on 12/08/18 10:15; Admin Dose 2,000 MG; Start 12/07/18 at 21:00 Atorvastatin Calcium (Lipitor) 10 mg HS PO Last administered on 12/07/18 20:53; Admin Dose 10 MG; Start 12/07/18 at 21:00 Enoxaparin Sodium (Lovenox) 40 mg DAILY SC Last administered on 12/08/18 10:16; Admin Dose 40 MG; Start 12/07/18 at 14:00 CARLITO JOHNSON NP Dec 08, 2018 11:24
[2018-12-08 13:00] VITALS: BP 120/60; PULSE 72; RESP 18
--- NOTE | 2018-12-08 14:48 | CONS ---
Assessment/Plan Assessment/Plan Hospital Course (Demo Recall) Patient is alert looks comfortable, no fevers overnight. WBC today 8.7, no shift no bands BUN 19 creatinine 19 and 0.68 Microbiology: Right ankle wound growing staph aureus preliminary Antimicrobials: She is on IV vancomycin Physical examination: Well-developed elderly woman who is alert in no distress. Head atraumatic normocephalic. Neck is supple. Chest rise symmetrical, breath sounds clear. Heart: S1-S2. Abdomen soft bowel sounds present. Extremities with right lower extremity Tan wrap below knee Assessment: 1. Right ankle chronic venous stasis ulcer with cultures growing staph aureus 2. Chronic venous stasis 3. Peripheral arterial disease Plan: Patient is stable, pending final wound cultures, continue vancomycin, anticipate discharge on oral antibiotics, likely Bactrim to complete 2 weeks Consultation Date/Type/Reason Admit Date/Time Dec 06, 2018 at 21:33 Initial Consult Date Type of Consult id Date/Time of Note DATE: 12/08/18 TIME: 14:48 Exam/Review of Systems Exam Vitals Vital Signs Date Temp Pulse Resp B/P (MAP) Pulse Ox O2 O2 Flow FiO2 Time Delivery Rate 12/08/18 98.5 72 18 120/60 98 13:00 (80) 12/08/18 Room Air 02:00 Intake and Output 12/07/18 12/07/18 12/08/18 1515:00 23:00 07:00 IntakeIntake Total 1780 ml 100 ml BalanceBalance 1780 ml 100 ml Results Result Diagram: 12/08/18 0457 12/08/18 0457 Results 24hrs Laboratory Tests Test 12/08/18 04:57 White Blood Count 8.7 Red Blood Count 4.17 L Hemoglobin 12.1 Hematocrit 36.3 L Mean Corpuscular Volume 87.1 Mean Corpuscular Hemoglobin 29.0 Mean Corpuscular Hemoglobin Concent 33.3 Red Cell Distribution Width 13.2 Platelet Count 208 Mean Platelet Volume 10.9 H Immature Granulocytes % 0.200 Neutrophils % 55.1 Lymphocytes % 27.5 Monocytes % 7.4 Eosinophils % 9.2 H Basophils % 0.6 Nucleated Red Blood Cells % 0.0 Immature Granulocytes # 0.020 Neutrophils # 4.8 Lymphocytes # 2.4 Monocytes # 0.6 Eosinophils # 0.8 H Basophils # 0.1 Nucleated Red Blood Cells # 0.0 Erythrocyte Sedimentation Rate 36 H Sodium Level 140 Potassium Level 3.9 Chloride Level 102 Carbon Dioxide Level 27 Anion Gap 11 Blood Urea Nitrogen 19 Creatinine 0.68 Est Glomerular Filtrat Rate mL/min > 60 Glucose Level 104 Calcium Level 9.7 C-Reactive Protein < 0.5 Medications Medication Current Medications IV Flush (NS 3 ml) 3 ml PER PROTOCOL IV ; Start 12/06/18 at 22:30 Ondansetron HCl (Zofran Inj) 4 mg Q6H PRN IV NAUSEA/VOMITING; Start 12/06/18 at 22:30 Acetaminophen (Tylenol Tab) 650 mg Q6H PRN PO .PAIN 1-3 OR TEMP Last administered on 12/07/18 17:57; Admin Dose 650 MG; Start 12/06/18 at 22:30 Acetaminophen/ Hydrocodone Bitart ([place] (5/325)) 1 tab Q6H PRN PO .MOD PAIN 4- 6 Last administered on 12/07/18at 13:05; Admin Dose 1 TAB; Start 12/06/18 at 22:30 Morphine Sulfate (morphine) 2 mg Q4H PRN IV .SEVERE PAIN 7-10; Start 12/06/18 at 22:30 Docusate Sodium (Colace) 100 mg Q12H PRN PO .CONSTIPATION; Start 12/06/18 at 22:30 Bisacodyl (Dulcolax) 5 mg DAILY PRN PO .CONSTIPATION; Start 12/06/18 at 22:30 Vancomycin HCl (Vanco Iv Per Pharmacy) VANCOMYCIN PER PHARMACY PER PROTOCOL XX ; Start 12/07/18 at 02:00 Vancomycin HCl 1.25 gm/Sodium Chloride 250 ml @ 83.333 mls/ hr Q24H IVPB Last administered on 12/08/18at 04:13; Admin Dose 83.333 MLS/HR; Start 12/08/18 at 04:00 Fish Oil (Fish Oil) 2,000 mg BID PO Last administered on 12/08/18 10:15; Admin Dose 2,000 MG; Start 12/07/18 at 21:00 Atorvastatin Calcium (Lipitor) 10 mg HS PO Last administered on 12/07/18 20:53; Admin Dose 10 MG; Start 12/07/18 at 21:00 Enoxaparin Sodium (Lovenox) 40 mg DAILY SC Last administered on 4/4/19at 10:16; Admin Dose 40 MG; Start 12/07/18 at 14:00 ALBERTO CAMEJO NP Dec 08, 2018 14:48
[2018-12-08 20:00] VITALS: BP 138/74; PULSE 86; RESP 18
[2018-12-08] MEDS: ATORVASTATIN 10 MG TAB PO SCH (20:46)
--- NOTE | 2018-12-09 00:44 | CONS ---
DATE OF ADMISSION: 12/06/2018 DATE OF CONSULTATION: 12/07/2018 CHIEF COMPLAINT: Right ankle cellulitis with venous ulceration. HISTORY OF PRESENT ILLNESS: This is a 63-year-old female who has had chronic ulceration, nonhealing; history of venous stasis. She has had increasing drainage. She has been seen at 2 prior emergency rooms and the patient has been admitted and on empiric antibiotics. She has had a venous ultrasound and no evidence of thrombosis seen. PAST MEDICAL HISTORY: Venous stasis. PAST SURGICAL HISTORY: . SOCIAL HISTORY: Denies any alcohol or tobacco use. FAMILY HISTORY: Noncontributory. ALLERGIES: NONE. PHYSICAL EXAMINATION: VITAL SIGNS: Temperature is 98.5, pulse 78, respiratory rate 19, blood pressure 151/86, pulse ox is 97 on room air. GENERAL: The patient is alert, oriented, in no acute distress, female. EXTREMITIES: Has warm right lower extremity. Medial right ankle with venous ulceration and dried sa nguineous exudate. Slight tenderness with palpation. No visible cellulitis. There is hypopigmentat ion around the ulceration, and there is an anteromedial ankle scar from prior surgical incision. Has mycotic nails, 2+ DP, PT pulses. Prominent greater saphenous vein. Mild edema. LABORATORY STUDIES: WBC 8.7, hemoglobin 12.1, hematocrit 36.3, platelets 208. Sed rate is 36. Woun d cultures: Staph aureus and diphtheroids. Sensitivities are pending. DIAGNOSTIC STUDIES: Arterial study: Tri- and biphasic waveforms. Venous ultrasound: No evidence o f deep vein thrombosis. Ankle x-rays: No acute fracture, dislocation or foreign body. ASSESSMENT: 1. Right ankle pain, cellulitis. 2. Venous stasis ulceration. PLAN: The patient on empiric antibiotics, local wound care. No surgical intervention planned. Abdullahi mmend b.i.d. cleansing with Dakin's, Bactroban and compression wrap. Will need wound care as an outp atient. Dictated By: KATHRINE PRAJAPATI/RIGO Conf#: [id number] DID#: [id number] CC: MISAEL MOTA MD;*EndCC*
[2018-12-09 02:00] VITALS: BP 118/69; PULSE 62; RESP 18
[2018-12-09] MEDS: ACETAMINOPHEN 325 MG TAB PO PRN (02:52)
[2018-12-09] MEDS: VANCOMYCIN HCL 1.25 GM in SOD CHLORIDE 0.9% 250 ML IVPB SCH (03:45)
[2018-12-09] MEDS: FISH OIL 1,000 MG CAP PO SCH (08:33)
[2018-12-09] MEDS: ENOXAPARIN 40 MG/0.4 ML SYG SC SCH (08:35)
[2018-12-09 08:36] VITALS: BP 117/59; PULSE 74; RESP 20
--- NOTE | 2018-12-09 10:39 | PDOCDIS ---
Discharge Instructions CONDITION [id number] Patient Condition: [id number] Stable HOME CARE INSTRUCTIONS: [id number] Your diet recommendation is: [id number] carbohydrate controlled/low-cholesterol/low-fat diet. FOLLOW UP/APPOINTMENTS Follow-up Plan Follow-up with [facility] wound care center weekly for follow-up Follow-up with primary care physician in 1 week Continue wound care by cleansing with Dakin's, Bactroban and compression wrap. CARLITO JOHNSON V. PEDIATRIC CRITICAL CARE NURSE Dec 09, 2018 10:39
[2018-12-09] MEDS ORDERED: LEVO500T10 PO (10:45)
--- NOTE | 2018-12-09 10:57 | DS ---
Date/Time of Note Date/Time of Note DATE: 12/09/18 TIME: 10:47 Discharge Summary Admission/Discharge Info Admit Date/Time Dec 06, 2018 at 21:33 Discharge Date/Time Discharge Diagnosis 1.Right ankle venous stasis ulcer-WC VIN 2. Peripheral arterial disease affecting right DP artery. 3. Hyperlipidemia 4. Obesity with BMI 30.0. 5. Prediabetes with A1c 6.1. 6. Anemia, likely chronic. 7. Subclinical hypothyroidism. Patient Condition: Stable Consults Dr. Carroll, vascular ,Podiatry Procedures 12/06/2018. IMPRESSION: Elevation of peak systolic velocity in the right dorsalis pedis artery suggestive of hemodynamically significant stenosis. 12/07/2018 IMPRESSION: No acute fracture dislocation or radiodense foreign body. Hospital Course 63-year-old female with hyperlipidemia, peripheral artery disease, admitted with nonhealing right ankle chronic wound. Patient's arterial studies showed significant stenosis on right dorsalis pedis artery. 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 Recommendation was to continue wound care by [facility], application of Bactroban and cover with multilayer compression bandage. She was given broad-spectrum antimicrobials. We continue to optimize neurovascular status with antihypertensives to keep blood pressure ~140/90, diet, nutrition, exercise, blood glucose control, and antiplatelets/anticoagulation.Wound culture grew oxacillin sensitive staph. Antibiotics then be escalated down. Patient was continued on statin for dyslipidemia. She was also noted with prediabetes with A1c 6.1 for which diet changes advised. Was also noted with subclinical hypothyroidism for which outpatient repeat lab was recommended. She was counseled on weight reduction for underlying obesity. Patient was stable from a vascular and podiatry standpoint for discharge with outpatient wound care and weekly appointment at [facility] for follow-up. Unfortunately, as per [facility] clinic, patient insurance is limiting to have her follow-up at our [facility] clinic. As such, we have recommended her to follow-up with [facility] wound clinic for further outpatient follow-up. Patient was given [facility] information for her to follow-up. Patient's insurance status also does not allow home health wound care as such, nursing staff to teach how to change her dressing and go from there. I have also instructed the nursing staff to give some wound care supplies to take home with. At this time, patient is feeling back to baseline and we will discharge her on 10 more days on Levaquin with outpatient APC follow-up. Approximately 60 m spent on coordinating the discharge on this patient. Patient was seen in collaboration with Dr. Mann. Home Meds Active Scripts [Compression Bandage] No Conflict Check, #30 You need to have a 4 layer/multilayer compression bandage to cover dressing. Prov:CARLITO JOHNSON NP 12/09/18 Mupirocin* (Bactroban*) 2% -22 Gram Oint...g., 1 APPLIC TOP DAILY, #1 TUB SITE OF APPLICATION:RIGHT ANKLE Prov:CARLITO JOHNSON NP 12/09/18 Sodium Hypochlorite (Dakin's) 473 Ml Solution, 10 ML IRR DAILY, #1 BOTTLE Cleanse RIGHT ankle ulcer with Dakin solution and then apply Betadine and apply 4 layer compression bandage daily. Prov:CARLITO JOHNSON NP 12/09/18 Levofloxacin* (Levofloxacin*) 500 Mg Tablet, 500 MG PO DAILY for 10 Days, #10 TAB Prov:CARLITO JOHNSON NP 12/09/18 Reported Medications [place]-3 Fatty Acids/Fish Oil (Fish Oil 1,000 mg Capsule) 1 Each Capsule, 1 EACH PO DAILY, CAP 12/06/18 Simvastatin* (Zocor*) Unknown Strength Tablet, PO QHS, #30 TAB 12/06/18 Ibuprofen* (Ibuprofen*) 600 Mg Tablet, 600 MG PO Q6H PRN for PAIN LEVEL 1-5, TAB 12/06/18 Follow-up Plan Follow-up with [facility] wound care center weekly for follow-up Follow-up with primary care physician in 1 week Continue wound care by cleansing with Dakin's, Bactroban and compression wrap. Primary Care Provider Care Physician No Primary Pending Labs Laboratory Tests Test 12/09/18 05:18 Erythrocyte Sedimentation Rate 33 mm/Hr (0-30) C-Reactive Protein < 0.5 mg/dl (0.0-0.9) CARLITO JOHNSON NP Dec 09, 2018 10:57
[2018-12-09] MEDS ORDERED: MUPI22OI2 TOP (11:01)
[2018-12-09] MEDS ORDERED: [UNRECOGNIZED DRUG - SUPPLY] (11:01)
[2018-12-09] MEDS ORDERED: [UNRECOGNIZED DRUG - CODE] IRR (11:01)
--- NOTE | 2018-12-09 11:58 | CONS ---
Assessment/Plan Assessment/Plan Hospital Course (Demo Recall) No events, looks comfortable, no fevers Microbiology: Right ankle wound growing VIN Antimicrobials: IV vancomycin Physical examination: Well-developed elderly woman who is alert in no distress. Head atraumatic normocephalic. Neck is supple. Chest rise symmetrical, breath sounds clear. Heart: S1-S2. Abdomen soft bowel sounds present. Extremities with right lower extremity Tan wrap below knee Assessment: 1. Right ankle chronic venous stasis ulcer with cultures growing staph aureus 2. Chronic venous stasis 3. Peripheral arterial disease Plan: Remains stable, pending dc on PO abx to complete 2 weeks Consultation Date/Type/Reason Admit Date/Time Dec 06, 2018 at 21:33 Initial Consult Date Type of Consult id Date/Time of Note DATE: 12/09/18 TIME: 11:57 Exam/Review of Systems Exam Vitals Vital Signs Date Temp Pulse Resp B/P (MAP) Pulse Ox O2 O2 Flow FiO2 Time Delivery Rate 12/09/18 98.3 74 20 117/59 97 08:36 (78) 12/08/18 Room Air 02:00 Intake and Output 12/08/18 12/08/18 12/09/18 1515:00 23:00 07:00 IntakeIntake Total 670 ml 480 ml BalanceBalance 670 ml 480 ml Results Result Diagram: 12/08/18 0457 12/08/18 0457 Results 24hrs Laboratory Tests Test 12/09/18 05:18 Erythrocyte Sedimentation Rate 33 H C-Reactive Protein < 0.5 Medications Medication Current Medications IV Flush (NS 3 ml) 3 ml PER PROTOCOL IV ; Start 12/06/18 at 22:30 Ondansetron HCl (Zofran Inj) 4 mg Q6H PRN IV NAUSEA/VOMITING; Start 12/06/18 at 22:30 Acetaminophen (Tylenol Tab) 650 mg Q6H PRN PO .PAIN 1-3 OR TEMP Last administered on 12/09/18at 02:52; Admin Dose 650 MG; Start 12/06/18 at 22:30 Acetaminophen/ Hydrocodone Bitart ([place] (5/325)) 1 tab Q6H PRN PO .MOD PAIN 4- 6 Last administered on 12/07/18at 13:05; Admin Dose 1 TAB; Start 12/06/18 at 22:30 Morphine Sulfate (morphine) 2 mg Q4H PRN IV .SEVERE PAIN 7-10; Start 12/06/18 at 22:30 Docusate Sodium (Colace) 100 mg Q12H PRN PO .CONSTIPATION; Start 12/06/18 at 22:30 Bisacodyl (Dulcolax) 5 mg DAILY PRN PO .CONSTIPATION; Start 12/06/18 at 22:30 Vancomycin HCl (Vanco Iv Per Pharmacy) VANCOMYCIN PER PHARMACY PER PROTOCOL XX ; Start 12/07/18 at 02:00 Vancomycin HCl 1.25 gm/Sodium Chloride 250 ml @ 83.333 mls/ hr Q24H IVPB Last administered on 12/09/18at 03:45; Admin Dose 83.333 MLS/HR; Start 12/08/18 at 04:00 Fish Oil (Fish Oil) 2,000 mg BID PO Last administered on 12/09/18at 08:33; Admin Dose 2,000 MG; Start 12/07/18 at 21:00 Atorvastatin Calcium (Lipitor) 10 mg HS PO Last administered on 12/08/18at 20:46; Admin Dose 10 MG; Start 12/07/18 at 21:00 Enoxaparin Sodium (Lovenox) 40 mg DAILY SC Last administered on 12/09/18at 08:35; Admin Dose 40 MG; Start 12/07/18 at 14:00 Miscellaneous Information (*Rx Drug Level Order Reminder*) VANCO TROUGH ON 040... 0300 ONCE XX ; Start 12/10/18 at 03:00; Stop 12/10/18 at 03:01 ALBERTO CAMEJO NP Dec 09, 2018 11:58
[2018-12-09] MEDS ORDERED: DAKINS 0.0125%(1/40) 473 ML SOLUTION TP SCH (14:00)
[2018-12-09] MEDS ORDERED: MUPIROCIN 2% 22 GM OINT TOP SCH (14:00)
[2018-12-09 14:24] VITALS: BP 127/71; PULSE 82; RESP 20
== END 2018-12-09 15:50 | disposition home or self-care (01) | DRG 300 ==
LOC: E/R 18:40 → 2NE 21:33
PROVIDERS: ADMIT Family Medicine; ATTEND Family Medicine
DX: I70.233 Atherosclerosis of native arteries of right leg with ulceration of ankle (principal); I70.92 Chronic total occlusion of artery of the extremities; L03.115 Cellulitis of right lower limb; L97.319 Non-pressure chronic ulcer of right ankle with unspecified severity; E78.5 Hyperlipidemia, unspecified; E66.9 Obesity, unspecified; Z68.30 Body mass index [BMI] 30.0-30.9, adult; R73.03 Prediabetes; D64.9 Anemia, unspecified; E02 Subclinical iodine-deficiency hypothyroidism
CPT/HCPCS: 36415; 71045; 80048; 80053; 80061; 83036; 83735; 84439; 84443; 85025; 85610; 85651; 85730; 86140; 87070; 93922; 93970; 96374; J1650; J2543; J3370; J7040; J7050